=== PATIENT | female | born 2000 | race Caucasian/White ===

== ENCOUNTER 2022-07-15 14:21 | Emergency (ER) | payer OTHER ==
[~2022-07-15] VITALS: Ht 162.6 cm; Wt 86.4 kg
[2022-07-15 14:26] VITALS: TEMP 98.2
[2022-07-15 14:41] LABS: HEMATOCRIT 37.7 % (37.0-47.0); HEMOGLOBIN 12.5 g/dl (12.5-16.0); MEAN CELL VOLUME 91 fl (80.0-100.0); MEAN CORPUSCULAR HEMOGLOBIN 30 pg (27-31); MEAN CORPUSCULAR HGB CONC 33 g/dl (33.0-37.0); MEAN PLATELET VOLUME 8.7 fl (7.4-10.4); PLATELET COUNT 370 K/mm3 (130-400); RED BLOOD COUNT 4.14 M/mm3 (4.10-5.30); REDCELL DISTRIBUTION WIDTH-CV 14.2 % (11.5-14.5)
[2022-07-15 15:03] LABS: ALBUMIN 4.6 gm/dL (3.5-5.0); BILIRUBIN,TOTAL 0.5 mg/dL (0.2-1.2); CREATININE, serum 0.84 mg/dL (0.57-1.11); POTASSIUM 3.6 mmol/L (3.5-4.5); TOTAL PROTEIN 8.2 gm/dL (6.2-8.1)
[2022-07-15] MEDS ORDERED: ZOFRAN ODT4 MG PO (15:16)
[2022-07-15 15:29] VITALS: BP 108/68; PULSE 78
[2022-07-15 15:46] LABS: BAND 3 % (0-10); LYMPHOCYTE 16 % (20.0-51.0); NEUTROPHILS 81 % (42.0-75.2); PLATELET ESTIMATE NORMAL (NORMAL)
== END 2022-07-15 15:29 | disposition home or self-care (01) ==
LOC: COL.ER 14:21
PROVIDERS: Emergency Medicine
DX: F10.129 Alcohol abuse with intoxication, unspecified (principal); Y90.9 Presence of alcohol in blood, level not specified
CPT/HCPCS: J2405; J7030